=== PATIENT | male | born 1995 | race Two or more races ===

== ENCOUNTER 2021-04-29 02:56 | Emergency (ER) | payer OTHER ==
--- NOTE | 2021-04-29 03:11 | EDM.PDOC ---
ED HPI GENERAL MEDICAL PROBLEM - General Chief Complaint: General Stated Complaint: MAY HAVE HAD A SEISURE Time Seen by Provider: 04/29/21 03:01 Source of Information: Reports: Patient History Limitations: Reports: No Limitations - History of Present Illness INITIAL COMMENTS - FREE TEXT/NARRATIVE: The patient presents because he may have had a seizure. This started about 1/2 hour before arrival. He was sleeping and then he had a nightmare and then felt like he had sleep paralysis and then he was shaking. He felt very tired after that and weak. This has never happened to him before. He has no history of seizures. He did not bite his tongue or wet himself. He does drink alcohol but not regularly or heavy and not last night. He has been getting enough sleep. He not work to hard yesterday and not in the heat. He has no other symptoms. Onset: Sudden Duration: Minutes: Severity: Moderate Improves with: Reports: None Worsens with: Reports: None Associated Symptoms: Reports: Seizure. Denies: Chest Pain, Cough, Fever/Chills, Headaches, Nausea/Vomiting, Shortness of Breath - Related Data Allergies Allergy/AdvReac Type Severity Reaction Status Date / Time No Known Allergies Allergy Verified 04/29/21 03:08 Home Meds: Home Meds . [No Known Home Meds] 04/29/21 [History] ED ROS GENERAL - Review of Systems Review Of Systems: See Below Constitutional: Reports: No Symptoms HEENT: Reports: No Symptoms Respiratory: Reports: No Symptoms Cardiovascular: Reports: No Symptoms Endocrine: Reports: No Symptoms GI/Abdominal: Reports: No Symptoms : Reports: No Symptoms Musculoskeletal: Reports: No Symptoms Skin: Reports: No Symptoms Neurological: Reports: Seizure. Denies: Headache, Numbness, Tingling ED EXAM, GENERAL - Physical Exam Exam: See Below Exam Limited By: No Limitations General Appearance: Alert, No Apparent Distress Ears: Normal External Exam Nose: Normal Inspection Head: Atraumatic, Normocephalic Neck: Normal Inspection Respiratory/Chest: No Respiratory Distress, Lungs Clear, Normal Breath Sounds Cardiovascular: No Edema, No Murmur, Bradycardia GI/Abdominal: Soft, Non-Tender, No Organomegaly, No Mass Back Exam: Normal Inspection Extremities: Normal Inspection #1 Interpretation EKG Date: 04/29/21 Time: 03:14 Rhythm: Other (sinus bradycardia) Rate (Beats/Min): 42 [place]: Normal P-Wave: Present QRS: Normal ST-T: Normal QT: Normal Course - Vital Signs Last Recorded V/S: Last Vital Signs Temp 97.0 F 04/29/21 03:04 Pulse 45 L 04/29/21 03:04 Resp 16 04/29/21 03:04 BP 135/81 04/29/21 03:04 Pulse Ox 100 04/29/21 03:04 - Orders/Labs/Meds Orders: Active Orders 24 hr Category Date Time Status Cardiac Monitoring [RC] . DIRECTED Care 04/29/21 03:05 Active EKG Documentation Completion [RC] STAT Care 04/29/21 03:06 Active Holter Monitor 48 Hours [RC] .PRN Care 04/29/21 04:19 Active Head wo Cont [CT] Stat Exams 04/29/21 03:06 Taken TROPONIN I [CHEM] Stat Lab 04/29/21 04:19 Ordered Labs: Laboratory Tests 04/29/21 04/29/21 Range/Units 03:30 03:30 WBC 6.17 (4.23-9.07) K/mm3 RBC 5.22 (4.63-6.08) M/mm3 Hgb 15.3 (13.7-17.5) gm/dl Hct 45.1 (40.1-51.0) % MCV 86.4 (79.0-92.2) fl MCH 29.3 (25.7-32.2) pg MCHC 33.9 (32.2-35.5) g/dl RDW Std Deviation 40.0 (35.1-43.9) fL Plt Count 282 (163-337) K/mm3 MPV 10.2 (9.4-12.3) fl Neut % (Auto) 37.0 (34.0-67.9) % Lymph % (Auto) 43.3 (21.8-53.1) % [place] % (Auto) 11.5 (5.3-12.2) % Eos % (Auto) 7.5 H (0.8-7.0) Baso % (Auto) 0.5 (0.1-1.2) % Neut # (Auto) 2.29 (1.78-5.38) K/mm3 Lymph # (Auto) 2.67 (1.32-3.57) K/mm3 [place] # (Auto) 0.71 (0.30-0.82) K/mm3 Eos # (Auto) 0.46 (0.04-0.54) K/mm3 Baso # (Auto) 0.03 (0.01-0.08) K/mm3 Sodium 140 (136-145) mEq/L Potassium 3.8 (3.5-5.1) mEq/L Chloride 108 H (98-107) mEq/L Carbon Dioxide 28 (21-32) mEq/L Anion Gap 7.8 (5-15) BUN 12 (7-18) mg/dL Creatinine 1.1 (0.7-1.3) mg/dL Est Cr Clr Drug Dosing 104.44 mL/min Estimated GFR (MDRD) > 60 (>60) mL/min BUN/Creatinine Ratio 10.9 L (14-18) Glucose 94 (70-99) mg/dL Calcium 9.1 (8.5-10.1) mg/dL Magnesium 2.0 (1.8-2.4) mg/dL Total Bilirubin 0.6 (0.2-1.0) mg/dL AST 14 L (15-37) U/L ALT 24 (16-63) U/L Alkaline Phosphatase 101 (46-116) U/L Total Protein 7.3 (6.4-8.2) g/dl Albumin 3.9 (3.4-5.0) g/dl Globulin 3.4 gm/dL Albumin/Globulin Ratio 1.2 (1-2) - Re-Assessments/Exams Free Text/Narrative Re-Assessment/Exam: 04/29/21 04:23 I ordered an EKG, CT of his head and labs. His EKG shows a sinus bradycardia with no acute changes. His CT shows nothing acute. His labs look good. His heart rate would go down to 39. His blood pressure is good. He is not symptomatic. This may been his norm or it could have been the cause of the way he felt this morning. They way he described what happened I do not thing this was a seizure. I will have him wear a holter monitor and follow up withe Dr Godinez in our clinic. 04/29/21 04:29 He did tell my nurse later that he did have some chest pain at times. I have ordered a troponin. Departure - Departure Time of Disposition: 04:30 Disposition: Home, Self-Care 01 Condition: Good Clinical Impression: Bradycardia - Discharge Information *PRESCRIPTION DRUG MONITORING PROGRAM REVIEWED*: Not Applicable *COPY OF PRESCRIPTION DRUG MONITORING REPORT IN PATIENT DAPHNE: Not Applicable Referrals: PCP,None [Primary Care Provider] - Natty Godinez MD [Physician] - 1 Week Forms: ED Department Discharge Additional Instructions: Wear the holter monitor for 48 [address]. Follow up with Dr Godinez in our clinic. Please return if you are worse. Sepsis Event Note (ED) - Focused Exam Vital Signs: Vital Signs Temp Pulse Resp BP Pulse Ox 04/29/21 03:04 97.0 F 45 L 16 135/81 100 - My Orders Last 24 Hours: My Active Orders 04/29/21 03:05 Cardiac Monitoring [RC] . DIRECTED 04/29/21 03:06 EKG Documentation Completion [RC] STAT Head wo Cont [CT] Stat 04/29/21 04:19 Holter Monitor 48 Hours [RC] .PRN TROPONIN I [CHEM] Stat - Assessment/Plan Last 24 Hours: My Active Orders 04/29/21 03:05 Cardiac Monitoring [RC] . DIRECTED 04/29/21 03:06 EKG Documentation Completion [RC] STAT Head wo Cont [CT] Stat 04/29/21 04:19 Holter Monitor 48 Hours [RC] .PRN TROPONIN I [CHEM] Stat
--- NOTE | 2021-04-29 08:23 | CT ---
Head CT Technique: Multiple axial sections through the brain were obtained. Intravenous contrast not utilized. Reconstructed coronal and sagittal images were obtained. Comparison: No prior intracranial imaging is available. Findings: Ventricles along with basal cisterns and sulci over the convexities are within normal limits for the patient's age. No abnormal parenchymal densities are seen. No evidence of intracranial hemorrhage is seen. No midline shift or mass-effect is seen. Bone window settings were reviewed. Visualized paranasal sinuses and mastoid sinuses show nothing acute. No acute calvarial abnormality is appreciated. Impression: 1. Nothing acute is seen on noncontrast head CT study. Diagnostic code #1 I agree with preliminary report from [facility], finalized on 04/29/21, 5:29 AM CDT, code 1
== END 2021-04-29 04:53 | disposition home or self-care (01) ==
LOC: EDBD 02:56 → JD.ED 02:56
DX: R00.1 Bradycardia, unspecified (principal)
CPT/HCPCS: 36415; 70450; 70450-26; 80053; 83735; 84484; 85025; 93005; 93010; 93225; 93226; 99284; 99285-25

== ENCOUNTER 2023-10-09 21:58 | Emergency (ER) | payer OTHER | END 2023-10-09 22:17 | disposition left against medical advice (07) | LOC: JD.ED 21:58 | DX: Z53.21 Procedure and treatment not carried out due to patient leaving prior to being seen by health care provider (principal) ==